=== PATIENT | female | born 1990 | race American Indian/Alaskan Native ===

== ENCOUNTER 2019-09-02 09:24 | Emergency (ER) | payer OTHER ==
[2019-09-02] MEDS ORDERED: ONDANSETRON 4 MG/2 ML INJ IV ONE (10:01)
[2019-09-02] MEDS ORDERED: FLUORESCEIN 1 MG STRIP OP ONE (10:17)
[2019-09-02] MEDS ORDERED: TETRACAINE 0.5% OPHTH SOLN 4ML OU ONE (10:17)
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
[2019-09-02 11:18] LABS: Hematocrit 44.6 % (30.3-42.9); Hemoglobin 15.2 gm/dl (10.1-14.3); Mean Corpuscular HGB Conc 34 % (30-34); Mean Corpuscular Volume 87 fl (79-97); Platelet Count 354 K/mm3 (140-440); Red Blood Count 5.12 M/mm3 (3.65-5.03); Red Cell Distribution Width 13.7 % (13.2-15.2)
[2019-09-02 11:41] LABS: Alanine Aminotransferase 68 units/L (7-56); Albumin 4.7 g/dL (3.9-5); BUN/Creatinine Ratio 22; Blood Urea Nitrogen 11 mg/dL (7-17); Calcium 9.5 mg/dL (8.4-10.2); Hemolysis Index 11
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
--- NOTE | 2019-09-02 12:50 | Cat Scan Report ---
CT HEAD WITHOUT CONTRAST INDICATION / CLINICAL INFORMATION: headache. TECHNIQUE: Axial imaging performed from the skull apex through the skull base without the use of cont rast. Sagittal and coronal reformatted images. All CT scans at this location are performed using CT dose reduction for ALARA by means of automated exposure control. COMPARISON: None available. FINDINGS: CEREBRAL PARENCHYMA: No significant abnormality. No acute territorial infarct. HEMORRHAGE: None. EXTRA-AXIAL SPACES: Normal in size and morphology for the patient's age. VENTRICULAR SYSTEM: Normal in size and morphology for the patient's age. MIDLINE SHIFT OR HERNIATION: None. CEREBELLUM / BRAINSTEM: No significant abnormality. CALVARIUM: No significant abnormality. ORBITS: Normal as visualized. PARANASAL SINUSES / MASTOID AIR CELLS: There is moderate to large fluid in the visualized ethmoid and maxillary sinuses. The remaining sinuses and mastoid air cells are clear. SOFT TISSUES of HEAD: No significant abnormality. ADDITIONAL FINDINGS: None. IMPRESSION: Normal CT of the brain parenchyma. Sinus disease as described. Correlate for acute sinusitis. Signer Name: Suman Girard Jr, MD Signed: 09/02/2019 12:45 PM Workstation Name: [id number]
[2019-09-02] MEDS ORDERED: CYCLOBENZAPRINE 10 MG TAB PO ONE (13:19)
[2019-09-02] MEDS ORDERED: ACETAMINOPHEN 325 MG TAB PO ONE (13:19)
[2019-09-02 13:52] VITALS: BP 120/78
== END 2019-09-02 13:51 | disposition home or self-care (01) ==
LOC: ED 09:24
DX: S05.02XA Injury of conjunctiva and corneal abrasion without foreign body, left eye, initial encounter (principal); J01.90 Acute sinusitis, unspecified; S09.90XA Unspecified injury of head, initial encounter; Z79.899 Other long term (current) drug therapy; W22.8XXA Striking against or struck by other objects, initial encounter; Y93.89 Activity, other specified; Y92.89 Other specified places as the place of occurrence of the external cause; Y99.8 Other external cause status
CPT/HCPCS: 36415; 70450; 72125; 80053; 84703; 85027; 96374; 99284; J2405

== ENCOUNTER 2021-03-30 10:08 | Emergency (ER) | payer OTHER ==
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
== END 2021-03-30 10:49 | disposition home or self-care (01) ==
LOC: ED 10:08
CPT/HCPCS: 99282